=== PATIENT | male | born 1935 | race Caucasian/White ===

== ENCOUNTER 2021-05-14 14:56 | Inpatient (IN) | payer OTHER ==
[~2021-05-14] VITALS: Ht 172.7 cm; Wt 99.3 kg
--- NOTE | 2021-05-14 15:13 | NUR ---
[id number] HOME, SOB X 1 HOUR. O2 SATS NOTED AT 70%RA. NITRO SPRAY GIVEN RATING CLERK. THE PATIENT IS NOTED TO HAVE EPISODES OF NON-PRODUCTIVE COUGH. DENIES PAIN. ATTACHED TO THE MONITOR.
[2021-05-14] MEDS ORDERED: FUROSEMIDE 20 MG/2 ML VIAL ONE (15:20)
[2021-05-14] MEDS ORDERED: NTG 50 MG/D5W250 ML BOTTL 0 ML IV ONE (15:22)
--- NOTE | 2021-05-14 15:23 | NUR ---
COVID SWAB DONE AND SENT TO THE LAB
[2021-05-14] MEDS ORDERED: FUROSEMIDE 40 MG/4 ML VIAL IV ONE (15:30)
[2021-05-14] MEDS ORDERED: NTG 50 MG/D5W250 ML BOTTL 250 ML IV ONE (15:30)
[2021-05-14 15:41] LABS: BASOPHILS % (AUTO) 0.3 % (0.0-2.0); EOSINOPHILS % (AUTO) 0.1 % (0.0-6.0); HEMATOCRIT 49 % (39-51); HEMOGLOBIN 15.5 g/dL (13.5-17.5); LYMPHOCYTES # (AUTO) 1.1 K/uL (0.8-4.8); LYMPHOCYTES % (AUTO) 7.2 % (20.0-44.0); MEAN CORPUSCULAR HGB CONC 32 g/dl (31.0-36.0); MEAN CORPUSCULAR VOLUME 87 fL (80-96); MONOCYTES # (AUTO) 1.1 K/uL (0.1-1.30); MONOCYTES % (AUTO) 7.4 % (2.0-12.0); NEUTROPHILS # (AUTO) 12.9 K/uL (1.8-8.9); PLATELET COUNT (AUTO) 229 K/uL (150-450); RED BLOOD CELL COUNT(AUTO) 5.64 MIL/uL (4.5-6.0); WHITE BLOOD COUNT (AUTO) 15.2 K/uL (4.3-11.0)
--- NOTE | 2021-05-14 15:41 | NUR ---
PER DR HOLLEY HOLDING ORDERED NTG DRIP. BP 102/53, HR 79
--- NOTE | 2021-05-14 15:43 | NUR ---
OXYGEN DELIVERING 15L/MIN VIA NON-REBREATHER MASK REDUCED TO 10L/MIN VIA NON-REBREATHER MASK AND SATURATION IS MAINTAINED AT 98%. DR HOLLEY AWARE.
--- NOTE | 2021-05-14 16:11 | NUR ---
CALLED [facility].
[2021-05-14 16:21] LABS: CALCIUM, SERUM 8.9 mg/dL (8.5-10.1); CARBON DIOXIDE 20 mmol/L (21-32); CHLORIDE 108 mmol/L (98-107); CREATININE 1.3 mg/dL (0.6-1.3); GLUCOSE 162 mg/dL (74-106); POTASSIUM 3.8 mmol/L (3.5-5.1); SODIUM SERUM 142 mmol/L (136-145); UREA NITROGEN, BLOOD 22 mg/dL (7-18)
[2021-05-14 16:27] LABS: ALANINE AMINOTRANSFERASE 16 U/L (12-78); ALBUMIN 3.5 g/dL (3.4-5.0); ALKALINE PHOSPHATASE 69 U/L (46-116); ASPARTATE AMINOTRANSFERASE 16 U/L (15-37); BILIRUBIN,DIRECT 0.2 mg/dL (0.0-0.2); BILIRUBIN,TOTAL 0.8 mg/dL (0.2-1.0); TOTAL PROTEIN, SERUM 6.7 g/dL (6.4-8.2)
--- NOTE | 2021-05-14 16:36 | NUR ---
RECEIVED AN OKAY FOR ADMISSION. DR. NIEVES AUTHORIZING . .
--- NOTE | 2021-05-14 17:29 | NUR ---
AUDREY WYATT, CALLED TO GET AN UPDATE ABOUT HER
[2021-05-14] MEDS ORDERED: PRED20TA PO (17:56)
[2021-05-14] MEDS ORDERED: ATEN25TA PO (17:56)
[2021-05-14] MEDS ORDERED: CLOT15CR27 TP (17:56)
[2021-05-14] MEDS ORDERED: ASPI-1420 PO (17:56)
[2021-05-14] MEDS ORDERED: TAMS-12 PO (17:56)
[2021-05-14] MEDS ORDERED: CHOL100062 PO (17:56)
[2021-05-14] MEDS ORDERED: CICL6.6S5 TP (17:56)
[2021-05-14] MEDS ORDERED: DABI150C PO (17:56)
[2021-05-14] MEDS ORDERED: DICL100G34 TP (17:56)
[2021-05-14] MEDS ORDERED: ATOR10TA PO (17:56)
[2021-05-14] MEDS ORDERED: ALEN70TA80 PO (17:56)
[2021-05-14] MEDS ORDERED: POTA10TA10 PO (17:56)
[2021-05-14] MEDS ORDERED: LOSA25TA27 PO (17:56)
[2021-05-14] MEDS ORDERED: ESCI5TAB PO (17:56)
[2021-05-14] MEDS ORDERED: MULT-754 PO (17:56)
[2021-05-14] MEDS ORDERED: MAG HYDROX/AL HYDROX/SIMETH 30 ML UDC PO PRN (18:00)
[2021-05-14] MEDS ORDERED: ONDANSETRON HCL/PF 4 MG/2 ML VIAL IVP PRN (18:00)
[2021-05-14] MEDS ORDERED: ZOLPIDEM TARTRATE 5 MG TABLET PO PRN (18:00)
[2021-05-14] MEDS ORDERED: MAGNESIUM HYDROXIDE 30 ML UDC PO PRN (18:00)
[2021-05-14] MEDS ORDERED: hydrALAZINE HCL 25 MG TABLET PO PRN (18:00)
[2021-05-14] MEDS ORDERED: ACETAMINOPHEN 325 MG TABLET PO PRN (18:00)
[2021-05-14] MEDS ORDERED: DICLOFENAC TOPICAL 100 GM GEL..GM. TP PRN (19:00)
[2021-05-14] MEDS ORDERED: ALENDRONATE 70 MG TABLET PO SCH (19:00)
[2021-05-14] MEDS ORDERED: HYDR25TA4 PO (19:45)
--- NOTE | 2021-05-14 20:37 | NUR ---
bed 110
--- NOTE | 2021-05-14 20:39 | NUR ---
RN NOTE REPORT RECEIVED BY RADHA SHER FOR GUILLERMO.
--- NOTE | 2021-05-14 20:39 | NUR ---
report given to RADHA Aparicio
[2021-05-14] MEDS ORDERED: Z GUARD REMEDY 2 OZ OINT TP PRN (21:00)
[2021-05-14 21:30] VITALS: BP 103/64
--- NOTE | 2021-05-14 21:30 | NUR ---
RN NOTE PT BROUGHT TO UNIT VIA GURNEY. PT IS ON NRB WITH OXYGEN SATURATION >95% WITH NO SIGNS OF RESP DISTRESS. PT IS A/OX4. PT IS ON TELE MONITOR SHOWING NSR. IV LINE ON RIGHT AC GAUGE 22 NOTED. LINE FLUSHED, PATENT, AND INTACT WITH NO INFILTRATION. ALL SAFETY MEASURES IMPLEMENTED. CALL LIGHT WITHIN REACH. BED ALARM ON. BED LOCKED AND IN LOWEST POSITION. WILL CONTINUE TO MONITOR AND ASSESS FOR ANY CHANGES.
--- NOTE | 2021-05-14 21:32 | NUR ---
transferred pt to 110 per acls
[2021-05-15] VITALS: BP 135/50
[2021-05-15 04:00] VITALS: BP 151/60
[2021-05-15 07:44] LABS: BASOPHILS # (AUTO) 0.1 K/uL (0.0-0.2); BASOPHILS % (AUTO) 0.4 % (0.0-2.0); HEMATOCRIT 44 % (39-51); HEMOGLOBIN 14.5 g/dL (13.5-17.5); LYMPHOCYTES # (AUTO) 0.6 K/uL (0.8-4.8); LYMPHOCYTES % (AUTO) 4.5 % (20.0-44.0); MEAN CORPUSCULAR HGB CONC 33 g/dl (31.0-36.0); MEAN CORPUSCULAR VOLUME 85 fL (80-96); MONOCYTES % (AUTO) 7.4 % (2.0-12.0); NEUTROPHILS # (AUTO) 11.8 K/uL (1.8-8.9); NEUTROPHILS % (AUTO) 85.7 % (43.0-81.0); PLATELET COUNT (AUTO) 195 K/uL (150-450); RED BLOOD CELL COUNT(AUTO) 5.12 MIL/uL (4.5-6.0); WHITE BLOOD COUNT (AUTO) 13.7 K/uL (4.3-11.0)
[2021-05-15 07:56] LABS: CALCIUM, SERUM 8.6 mg/dL (8.5-10.1); CREATININE 1.3 mg/dL (0.6-1.3); MAGNESIUM 2.3 mg/dL (1.8-2.4); PHOSPHORUS 3.5 mg/dL (2.5-4.9); POTASSIUM 4.5 mmol/L (3.5-5.1)
[2021-05-15] MEDS: PANTOPRAZOLE 40 MG TABLET.DR PO SCH (08:20)
[2021-05-15] MEDS: FUROSEMIDE 40 MG/4 ML VIAL IV SCH (08:38)
[2021-05-15] MEDS: TAMSULOSIN 0.4 MG CAP.SR.24H PO SCH (08:39)
[2021-05-15] MEDS: CHOLECALCIFEROL 1,000 UNIT TABLET (VIT D3) PO SCH (08:39)
[2021-05-15] MEDS: ESCITALOPRAM OXALATE (10 MG) 10 MG TABLET PO SCH (08:40)
[2021-05-15] MEDS: ATENOLOL 25 MG TABLET PO SCH ×2 (08:40→18:00)
[2021-05-15] MEDS: POTASSIUM CHLORIDE 10 MEQ TABLET.SA PO SCH (08:40)
[2021-05-15] MEDS: ATORVASTATIN 10 MG TABLET PO SCH (08:40)
[2021-05-15] MEDS: ASPIRIN EC 81 MG TABLET.DR PO SCH (08:40)
[2021-05-15] MEDS: MULTIVITAMINS,THERAGRAN 1 UDTAB TABLET PO SCH (08:41)
[2021-05-15] MEDS: LOSARTAN POTASSIUM 25 MG TABLET PO SCH (08:41)
[2021-05-15] MEDS: CLOTRIMAZOLE 1% 15 GM TUBE TP SCH ×2 (08:43→18:01)
[2021-05-15] MEDS: DABIGATRAN ETEXILATE MESYLATE 150 MG CAPSULE PO SCH ×2 (08:47→18:00)
[2021-05-15 11:12] VITALS: BP 166/81
[2021-05-15 12:12] LABS: THYROID STIMULATING HORMONE 1.554 uIU/mL (0.358-3.74)
[2021-05-15 14:22] VITALS: BP 104/62
[2021-05-15 17:06] VITALS: BP 128/83
--- NOTE | 2021-05-15 19:25 | NUR ---
TELE/RN OPENING NOTE RECIEVED PT. IN BED. PT IS ON NRB MASK WITH OXYGEN SATURATION >95%. PT SHOWING NO S/S OF RESP DISTRESS. PT IS ON TELE MONITOR SHOWING NSR. IV LINE ON RIGHT AC #22 NOTED. LINE FLUSHED, PATENT, AND INTACT WITH NO INFILTRATION. PT KEPT CLEAN AND COMFORTABLE. ALL SAFETY MEASURES IMPLEMENTED. CALL LIGHT WITHIN REACH. BED ALARM ON. BED LOCKED AND IN LOWEST POSITION. WILL CONTINUE TO MONITOR
--- NOTE | 2021-05-15 19:26 | NUR ---
MS/RN CLOSING NOTE NO CHANGES IN PT CONDITION DURING SHIFT. PT IS ON NRB MASK WITH OXYGEN SATURATION >95%. PT SHOWING NO S/S OF RESP DISTRESS. PT IS ON TELE MONITOR SHOWING NSR. IV LINE ON RIGHT AC #22 NOTED. LINE FLUSHED, PATENT, AND INTACT WITH NO INFILTRATION. PT KEPT CLEAN AND COMFORTABLE. ALL SAFETY MEASURES IMPLEMENTED. CALL LIGHT WITHIN REACH. BED ALARM ON. BED LOCKED AND IN LOWEST POSITION. WILL ENDORSE TO MORNING SHIFT RN FOR GUILLERMO.
[2021-05-15 20:00] VITALS: BP 125/62
--- NOTE | 2021-05-15 20:00 | NUR ---
MS RN NOTE PATIENT IN BED RESTING, ALERT AND ORIENTED X3. ON ROOM AIR,NO SOB NO DISTRESS NOTED RESPIRATIONS EVEN AND UNLABORED. ON NON REBREATHER MASK AT 10 LITERS SATING 97% IV ACCESS ON RIGHT AC # 18 PATENT AND INTACT.WITH D5 1/2 NS AT 75CC/HR INFUSING WELL ALL NEEDS ATTENDED TOO CALL LIGHT WITHIN REACH, KEPT PTS CLEAN DRY AND COMFORTABLE DUE MEDS GIVEN ORDERED. BED LOCKED AND IN LOWEST POSITION. SAFETY MEASURES IMPLEMENTED.WILL CONTINUE TO MONITOR PTS.
--- NOTE | 2021-05-16 | NUR ---
ms rn notes PTS O2 TITRATED TO 8 LITERS VIA SIMPLE FACEMASK SATING 97% WILL CONTINUE TO MONITOR PTS.
--- NOTE | 2021-05-16 00:56 | NUR ---
MS RN NOTE PATIENT IN BED RESTING, ALERT AND ORIENTED X3. ON ROOM AIR,NO SOB NO DISTRESS NOTED RESPIRATIONS EVEN AND UNLABORED. ON NON REBREATHER MASK AT 10 LITERS SATING 97% IV ACCESS ON RIGHT AC # 18 PATENT AND INTACT.WITH D5 1/2 NS AT 75CC/HR INFUSING WELL ALL NEEDS ATTENDED TOO CALL LIGHT WITHIN REACH, KEPT PTS CLEAN DRY AND COMFORTABLE DUE MEDS GIVEN ORDERED. BED LOCKED AND IN LOWEST POSITION. SAFETY MEASURES IMPLEMENTED.WILL CONTINUE TO MONITOR PTS. Addendum: 05/16/21 at 0108 by VALENCIA SIU RN WRONG TIMED DOCUMENTATION
[2021-05-16 04:00] VITALS: BP 146/52
--- NOTE | 2021-05-16 04:00 | NUR ---
ms rn notes PTS O2 TITRATED TO 6 LITERS VIA SIMPLE FACEMASK SATING 94% WILL CONTINUE TO MONITOR PTS.
--- NOTE | 2021-05-16 06:00 | NUR ---
ms rn notes PTS O2 TITRATED TO 5 LITERS VIA SIMPLE NC SATING 93-94% WILL CONTINUE TO MONITOR PTS.
--- NOTE | 2021-05-16 06:50 | NUR ---
MS RN NOTES PTS REMAINS ON NC AT 5 LITERS WITH HUMIDIFIER SATING 93-% NO SOB NO DISTRESS NOTED , V/S STABLE AFEBRILE WILL ENDORSE TO RN DAY SHIFT FOR CONTINUITY OF CARE.
[2021-05-16 06:56] LABS: CALCIUM, SERUM 8.4 mg/dL (8.5-10.1); CREATININE 1.1 mg/dL (0.6-1.3); PHOSPHORUS 2.9 mg/dL (2.5-4.9)
[2021-05-16 07:05] LABS: BASOPHILS # (AUTO) 0.1 K/uL (0.0-0.2); BASOPHILS % (AUTO) 0.8 % (0.0-2.0); EOSINOPHILS % (AUTO) 5.8 % (0.0-6.0); HEMATOCRIT 42 % (39-51); HEMOGLOBIN 13.5 g/dL (13.5-17.5); LYMPHOCYTES # (AUTO) 0.5 K/uL (0.8-4.8); LYMPHOCYTES % (AUTO) 4.3 % (20.0-44.0); MEAN CORPUSCULAR HGB CONC 33 g/dl (31.0-36.0); MEAN CORPUSCULAR VOLUME 86 fL (80-96); MONOCYTES # (AUTO) 1.1 K/uL (0.1-1.30); MONOCYTES % (AUTO) 9.2 % (2.0-12.0); NEUTROPHILS # (AUTO) 9.4 K/uL (1.8-8.9); NEUTROPHILS % (AUTO) 79.9 % (43.0-81.0); PLATELET COUNT (AUTO) 170 K/uL (150-450); RED BLOOD CELL COUNT(AUTO) 4.83 MIL/uL (4.5-6.0); WHITE BLOOD COUNT (AUTO) 11.7 K/uL (4.3-11.0)
[2021-05-16] MEDS: TAMSULOSIN 0.4 MG CAP.SR.24H PO SCH (09:14)
[2021-05-16] MEDS: DABIGATRAN ETEXILATE MESYLATE 150 MG CAPSULE PO SCH ×2 (09:14→16:43)
[2021-05-16] MEDS: ESCITALOPRAM OXALATE (10 MG) 10 MG TABLET PO SCH (09:14)
[2021-05-16] MEDS: MULTIVITAMINS,THERAGRAN 1 UDTAB TABLET PO SCH (09:14)
[2021-05-16] MEDS: PANTOPRAZOLE 40 MG TABLET.DR PO SCH (09:15)
[2021-05-16] MEDS: ASPIRIN EC 81 MG TABLET.DR PO SCH (09:15)
[2021-05-16] MEDS: ATORVASTATIN 10 MG TABLET PO SCH (09:15)
[2021-05-16] MEDS: CHOLECALCIFEROL 1,000 UNIT TABLET (VIT D3) PO SCH (09:15)
[2021-05-16] MEDS: POTASSIUM CHLORIDE 10 MEQ TABLET.SA PO SCH (09:15)
[2021-05-16] MEDS: ATENOLOL 25 MG TABLET PO SCH ×2 (09:16→16:44)
[2021-05-16] MEDS: FUROSEMIDE 40 MG/4 ML VIAL IV SCH ×3 (09:16→16:44)
[2021-05-16] MEDS: LOSARTAN POTASSIUM 25 MG TABLET PO SCH (09:16)
[2021-05-16] MEDS: CLOTRIMAZOLE 1% 15 GM TUBE TP SCH ×2 (09:31→16:44)
[2021-05-16 12:00] VITALS: BP 143/56
--- NOTE | 2021-05-16 19:25 | NUR ---
MS RN CLOSING NOTE PATIENT CURRENTLY LYING IN BED, RESTING. EASY TO AROUSE. A/O X4. ON 5L OXYGEN WITH HUMIDIFIER VIA NASAL CANULA - TOLERATING WELL. NO SOB NOTED. NO DISTRESS/DISCOMFORT NOTED. IV ACCESS TO RIGHT AC #22 - SALINE LOCKED. CONDOM CATH NOTED - INTACT AND IN PLACE, DRAINING CLEAR, YELLOW URINE TO GRAVITY. SAFETY MEASURES IN PLACE. CALL LIGHT WITHIN REACH. REPORT GIVEN TO METROLOGIST NURSE FOR GUILLERMO.
--- NOTE | 2021-05-16 19:30 | NUR ---
RN NOTE RECEIVED PATIENT IN BED RESTING ALERT ORIENTED X4 VERBALLY RESPONSIVE ON 5L OXYGEN VIA NASAL CANNULA O2:98% IV SITE IS ON RIGHT AC INTACT PATENT ON CONDOM CATHETER URINE DRAINING YELLOW AND CLEAR,BY GRAVITY SAFETY MEASURE IMPLEMENT,CALL LIGHT WITHIN REACH,BED IN LOW POSITION AND LOCKED, CONTINUE TO MONITOR.
[2021-05-16 20:00] VITALS: BP 121/84
--- NOTE | 2021-05-17 02:20 | NUR ---
RN NOTE REPORT GIVEN TO MICHAEL RN FOR CONTINUATION OF CARE.
[2021-05-17 04:00] VITALS: BP 127/75
[2021-05-17 06:14] LABS: BASOPHILS # (AUTO) 0.1 K/uL (0.0-0.2); BASOPHILS % (AUTO) 0.6 % (0.0-2.0); EOSINOPHILS % (AUTO) 5.9 % (0.0-6.0); HEMATOCRIT 41 % (39-51); HEMOGLOBIN 13.7 g/dL (13.5-17.5); LYMPHOCYTES # (AUTO) 0.6 K/uL (0.8-4.8); LYMPHOCYTES % (AUTO) 6.3 % (20.0-44.0); MEAN CORPUSCULAR HGB CONC 33 g/dl (31.0-36.0); MEAN CORPUSCULAR VOLUME 84 fL (80-96); MONOCYTES # (AUTO) 1.1 K/uL (0.1-1.30); MONOCYTES % (AUTO) 11.6 % (2.0-12.0); NEUTROPHILS # (AUTO) 7.3 K/uL (1.8-8.9); NEUTROPHILS % (AUTO) 75.6 % (43.0-81.0); PLATELET COUNT (AUTO) 174 K/uL (150-450); RED BLOOD CELL COUNT(AUTO) 4.88 MIL/uL (4.5-6.0); WHITE BLOOD COUNT (AUTO) 9.6 K/uL (4.3-11.0)
--- NOTE | 2021-05-17 06:24 | NUR ---
MS RN CLOSING NOTE PT IS IN BED WITH EYES CLOSED, EASY TO AROUSE. A/O X4. PT IS ON 5LPM O2 WITH HUMIDIFIER VIA NC TOLERATING WELL. NO SOB OR S/S OF RESPIRATORY DISTRESS NOTED. IV ACCESS IN RAC #22 SALINE LOCKED, INTACT AND PATENT. CONDOM CATH NOTED - INTACT AND IN PLACE, DRAINING CLEAR, YELLOW URINE TO GRAVITY. ALL NEEDS HAVE BEEN MET. SAFETY PRECAUTIONS MAINTAINED AT ALL TIMES. BED IN LOWEST LOCKED POSITION, HOB ELEVATED, SIDE RAILS UP X2. CALL LIGHT AND TABLE WITHIN REACH. WILL ENDORSE TO ONCOMING NURSE FOR GUILLERMO.
[2021-05-17 06:56] LABS: CALCIUM, SERUM 8.3 mg/dL (8.5-10.1); CREATININE 1.3 mg/dL (0.6-1.3); MAGNESIUM 1.9 mg/dL (1.8-2.4); PHOSPHORUS 3.7 mg/dL (2.5-4.9); POTASSIUM 4.1 mmol/L (3.5-5.1)
--- NOTE | 2021-05-17 07:30 | NUR ---
MS RN OPENING NOTE PT IS ASLEEP IN BED, EASY TO AROUSE. A/O X4. PT ON 5L O2 WITH HUMIDIFIER VIA NC. NO SOB. BREATHING IS EVEN AND UNLABORED. NO RESPIRATORY DISTRESS NOTED. IV ACCESS RAC#22 SL PATENT AND INTACT.CONDOM CATH PATENT, INTACT AND DRAINING CLEAR YELLOW URINE. SAFETY MEASURES IN PLACE WITH BED LOCKED AT LOW POSITION AND SIDE RAILS UP X 2. WILL MONITOR PATIENT THROUGHOUT SHIFT.
[2021-05-17] MEDS: PANTOPRAZOLE 40 MG TABLET.DR PO SCH (08:25)
[2021-05-17] MEDS: CHOLECALCIFEROL 1,000 UNIT TABLET (VIT D3) PO SCH (08:42)
[2021-05-17] MEDS: ATORVASTATIN 10 MG TABLET PO SCH (08:42)
[2021-05-17] MEDS: MULTIVITAMINS,THERAGRAN 1 UDTAB TABLET PO SCH (08:42)
[2021-05-17] MEDS: TAMSULOSIN 0.4 MG CAP.SR.24H PO SCH (08:42)
[2021-05-17] MEDS: LOSARTAN POTASSIUM 25 MG TABLET PO SCH (08:43)
[2021-05-17] MEDS: ESCITALOPRAM OXALATE (10 MG) 10 MG TABLET PO SCH (08:43)
[2021-05-17] MEDS: POTASSIUM CHLORIDE 10 MEQ TABLET.SA PO SCH (08:44)
[2021-05-17] MEDS: ATENOLOL 25 MG TABLET PO SCH ×2 (08:44→17:00)
[2021-05-17] MEDS: FUROSEMIDE 40 MG/4 ML VIAL IV SCH (08:44)
[2021-05-17] MEDS: ASPIRIN EC 81 MG TABLET.DR PO SCH (08:44)
[2021-05-17 08:48] LABS: ABG BASE EXCESS 0.8 mmol/L; ABG OXYGEN SATURATION 83.5 % (92.0-98.5); ABG PCO2 29.4 mmHg (35.0-45.0); ABG PH 7.507 (7.350-7.450); ABG PO2 47.1 mmHg (75.0-100.0); AaDO2 67.4 mmHg; COHb 1.8 % (0.5-1.5); MetHb 0.3 % (0.0-1.5); O2Hb 81.7 % (94.0-97.0); SITE, ABG Right Radial; VENT MODE, BG ROOM AIR
[2021-05-17] MEDS: DABIGATRAN ETEXILATE MESYLATE 150 MG CAPSULE PO SCH ×2 (08:48→17:00)
[2021-05-17] MEDS: CLOTRIMAZOLE 1% 15 GM TUBE TP SCH ×2 (09:03→17:00)
[2021-05-17] MEDS ORDERED: DIATR MEGLU/DIATRIZOATE SODIUM 30 ML BOTTLE (GASTROGRAPHIN) ONE (10:04)
[2021-05-17] MEDS ORDERED: LEVOFLOXACIN (250MG) 250 MG TABLET PO SCH (10:30)
[2021-05-17 12:00] VITALS: BP 118/70
--- NOTE | 2021-05-17 16:49 | NUR ---
MS COLLECTION COORDINATOR NOTE PATIENT WAS DISCHARGED WITH STABLE VITAL SIGNS. ALERT AND ORIENTED X 4. ALL DISCHARGE INSTRUCTIONS REVIEWED WITH PATIENT AND SIGNED. ALL BELONGINGS AND VALUABLES RETURNED AND SIGNED FOR. IV ACCESS KEPT IN PLACE, ID BAND REMOVED. REPORT GIVEN TO JENNY AT [address] [place] [address]. PATIENT WAS PICKED UP AT THIS TIME BY [facility].
== END 2021-05-17 16:50 | disposition short-term general hospital (02) | DRG 280 ==
LOC: ER 15:02 → TELE-TD 20:52 → TELE1 05-15 00:32 → MEDSG1 05-15 12:15
PROVIDERS: ADMIT Student in an Organized Health Care Education/Training Program; ATTEND Student in an Organized Health Care Education/Training Program
DX: I11.0 Hypertensive heart disease with heart failure (principal); J96.01 Acute respiratory failure with hypoxia; I21.A1 Myocardial infarction type 2; D68.59 Other primary thrombophilia; I48.92 Unspecified atrial flutter; D72.829 Elevated white blood cell count, unspecified; I48.91 Unspecified atrial fibrillation; I16.0 Hypertensive urgency; E86.0 Dehydration; Z87.891 Personal history of nicotine dependence; E78.5 Hyperlipidemia, unspecified; Z20.822 Contact with and (suspected) exposure to COVID-19; Z88.1 Allergy status to other antibiotic agents; Z88.8 Allergy status to other drugs, medicaments and biological substances; Z79.82 Long term (current) use of aspirin; Z79.83 Long term (current) use of bisphosphonates; Z79.899 Other long term (current) drug therapy; R79.89 Other specified abnormal findings of blood chemistry; E66.9 Obesity, unspecified; G47.33 Obstructive sleep apnea (adult) (pediatric); Z79.01 Long term (current) use of anticoagulants; Z68.33 Body mass index [BMI] 33.0-33.9, adult; I50.33 Acute on chronic diastolic (congestive) heart failure
CPT/HCPCS: 36415; 36600; 71045-TC; 80048-TC; 80061-TC; 80076-TC; 82803-TC; 83735-TC; 83880; 84100-TC; 84443-TC; 84484-TC; 85025-TC; 87081-TC; 93307-TC; 97116-TC; 97530-TC; A4349; C9803; G0378; J1940; J3490; Q9963